=== PATIENT | female | born 2000 | race Two or more races ===

== ENCOUNTER 2022-10-22 19:01 | Emergency (ER) | payer OTHER ==
[~2022-10-22] VITALS: Ht 165.1 cm; Wt 61.2 kg
[2022-10-22] MEDS ORDERED: SPRINTEC 28 DA1 EACH PO (19:40)
== END 2022-10-22 21:13 | disposition home or self-care (01) ==
LOC: ER 19:01
DX: R51.9 Headache, unspecified (principal)

== ENCOUNTER 2023-03-17 22:30 | Emergency (ER) | payer OTHER ==
[~2023-03-17] VITALS: Ht 165.1 cm; Wt 63.5 kg
[~2023-03-17 22:30] MED LIST: SPRINTEC 28 DA1 EACH PO
== END 2023-03-18 01:55 | disposition home or self-care (01) ==
LOC: ER 22:30
DX: G43.911 Migraine, unspecified, intractable, with status migrainosus (principal)